=== PATIENT | female | born 1965 | race Caucasian/White ===

== ENCOUNTER 2016-08-20 14:49 | Emergency (ER) | payer OTHER ==
--- NOTE | ~2016-08-20 | EKG ---
PATIENT: VENESSA RODARTE UNIT #: [id number] Ventricular Rate: 60 BPM Atrial Rate: 60 BPM P-R Interval: 150 ms QRS Duration: 90 ms Q-T Interval: 406 ms QTC Calculation(Bezet): 406 ms P [place]: 18 degrees Calculated R [place]: -14 degrees Calculated T [place]: 4 degrees Diagnosis Line: Normal sinus rhythm Diagnosis Line: Normal ECG Diagnosis Line: When compared with ECG of 06-JAN-2015 12:11, Diagnosis Line: No significant change was found Diagnosis Line: Confirmed by MAIRA GARCES MD ([id number]) on Diagnosis Line: 08/27/2016 5:08:54 PM INTERPRETING MD: [email or web address]
[~2016-08-20 14:49] MED LIST: ALPRAZOLAM PO; ALPRAZOLAM1 MG PO; AMARYL PO; AMOXICILLIN PO; BACTRIM DS TABL1 TAB PO; COREG; ENDOCET 10-3251 TAB PO; ESTRADIOL1 MG PO; ESTROGEN REPLACEMENT; FISH OIL 1,0001 CAP PO; GARLIC OIL1 CAP PO; JANUVIA100 MG; KEFLEX500 M1 PO; LEXAPRO20 MG PO; LORTAB 101 TAB 10/5 DOB; MAGNESIUM PO; METFORMIN HCL1000 M1 PO; MILK THISTLE150 MG PO; MULTIVITAMIN1 UDCAP PO; NEURONTIN; NEURONTIN PO; PERCOCET5/325 PO; PHENERGAN PO; PRECOSE50 MG PO; PRINIVIL20 M1 PO; TETRACYCLINE PO; TOPAMAX PO; VICTOZA0.6 MG/0.1; VIT D PO; WELCHOL625 MG PO; XANAX0.5 M1; ZITHROMAX PO; [UNRECOGNIZED DRUG - OTHER]; [UNRECOGNIZED DRUG - OTHER] PO; [UNRECOGNIZED DRUG - OTHER] TOP
== END 2016-08-20 16:53 | disposition home or self-care (01) ==
LOC: SED 14:49
DX: J02.9 Acute pharyngitis, unspecified (principal); R06.02 Shortness of breath; Z88.1 Allergy status to other antibiotic agents; Z88.8 Allergy status to other drugs, medicaments and biological substances
CPT/HCPCS: 93005; 99284